=== PATIENT | female | born 1985 | race Caucasian/White ===

== ENCOUNTER 2019-03-02 00:32 | Emergency (ER) | payer MEDICAID ==
[~2019-03-02] VITALS: Ht 162.6 cm; Wt 70.8 kg
[2019-03-02 00:37] VITALS: Ht 162.6 cm; Wt 70.8 kg
[2019-03-02 00:56] VITALS: BP 143/83
== END 2019-03-02 00:56 | disposition home or self-care (01) ==
LOC: ED 00:32
DX: K42.9 Umbilical hernia without obstruction or gangrene (principal)